=== PATIENT | male | born 1930 | race Caucasian/White ===

== ENCOUNTER 2016-11-17 21:44 | Emergency (ER) | payer MEDICARE, BC ==
[~2016-11-17] VITALS: Ht 167.6 cm; Wt 87.8 kg
[2016-11-17] MEDS ORDERED: SINGULAIR PO (22:35)
[2016-11-17] MEDS ORDERED: POTASSIUM CHLO20 ME3 PO (22:36)
[2016-11-17] MEDS ORDERED: RANEXA1000 M1 PO (22:36)
[2016-11-17] MEDS ORDERED: LEADER OMEPRAZO20 MG PO (22:37)
[2016-11-17] MEDS ORDERED: FLECAINIDE ACE100 MG PO (22:38)
[2016-11-17] MEDS ORDERED: GLUCOPHAGE PO (22:38)
[2016-11-17] MEDS ORDERED: COLACE100 M1 PO (22:39)
[2016-11-17] MEDS ORDERED: LOW DOSE ASPIRI81 M1 PO (22:39)
[2016-11-17] MEDS ORDERED: ACTOS30 MG PO (22:40)
[2016-11-17] MEDS ORDERED: TRICOR145 M1 PO (22:40)
[2016-11-17] MEDS ORDERED: HYDROCHLOROTHIA1 T14 PO (22:40)
[2016-11-17] MEDS ORDERED: LIPITOR 40MG TA40 MG PO (22:41)
[2016-11-17] MEDS ORDERED: LASIX40 M1 PO (22:41)
[2016-11-17] MEDS ORDERED: FERROUS SULFAT325 M4 PO (22:41)
[2016-11-17] MEDS ORDERED: ZYRTEC ALLERGY10 MG PO (22:42)
[2016-11-17] MEDS ORDERED: AZELASTINE137 MCG/Ac NS (22:43)
[2016-11-18 01:30] VITALS: BP 116/63
== END 2016-11-18 01:30 | disposition home or self-care (01) ==
LOC: ED 21:44
DX: I95.1 Orthostatic hypotension (principal); E86.9 Volume depletion, unspecified; N28.9 Disorder of kidney and ureter, unspecified; E11.9 Type 2 diabetes mellitus without complications; I38 Endocarditis, valve unspecified; Z79.84 Long term (current) use of oral hypoglycemic drugs
CPT/HCPCS: J7030

== ENCOUNTER 2016-11-19 19:05 | Observation (INO) | payer MEDICARE, BC ==
[~2016-11-19] VITALS: Ht 167.6 cm; Wt 85.5 kg
[~2016-11-19 19:05] MED LIST changes: -FLECAINIDE ACE150 MG PO; -Patient's Own Medica PO; -RANEXA500 M1 PO
[2016-11-19 19:11] VITALS: BP 114/57
--- NOTE | 2016-11-19 20:45 | NUR ---
PATIENT IS ADMITTED TO OBSERVATION ROOM 202 FROM THE ED AT THIS TIME. FAMILY ACCOMPANIES HIM. PATIENT DOES NOT APPEAR TO BE IN ANY OBVIOUS DISTRESS. PATIENT IS ALERT AND ORIENTED, PLEASANT AND COOPERATIVE. PATIENT IS TRANSPORTED TO ROOM IN WHEELCHAIR, AND TRANSFERS INDEPENDENTLY. HE REQUIRES ONLY SETUP ASSISTANCE. PATIENT'S GAIT IS STEADY. PATIENT'S FAMILY PROVIDES WALKER. DAUGHTER RETURNS HOME TO GET PATIENT'S MEDICATIONS AND CPAP MACHINE. PATIENT INDICATES UNDERSTANDING OF THE RATIONALE BEHIND THE ADMISSION. BED RAILS UP X2. BED ALARM ARMED. HOB ELEVATED TO A 30 DEGREE ANGLE PER PATIENT'S REQUEST. CALL LIGHT PROVIDED WITH INSTRUCTION ON HOW AND WHEN TO USE IT APPROPRIATELY. PATIENT ORIENTED TO ROOM AND HOSPITAL ROUTINES. CLOSE MONITORING AND HOURLY ROUNDING IMPLEMENTED.
[2016-11-19 21:00] VITALS: BP 115/56
[2016-11-19 21:23] VITALS: BP 115/56
[2016-11-19 23:00] VITALS: BP 108/60
[2016-11-20] VITALS (9 sets, daily range): BP systolic 86–109; BP diastolic 48–62
--- NOTE | 2016-11-20 01:14 | NUR ---
PATIENT CONTINUES TO REST QUIETLY IN BED. PATIENT DOES NOT APPEAR TO BE IN ANY OBVIOUS DISTRESS AT THIS TIME. PATIENT CHANGES HIS POSITION IN BED INDEPENDENTLY THROUGHOUT THE NIGHT. HOB ELEVATED TO A 15 DEGREE ANGLE AND PATIENT CHANGES THIS INDEPENDENTLY WELL. PATIENT CONTINUES ON CPAP THERAPY WITH HOME SETTINGS; NO BLEED-IN. PATIENT CONTINUES TO RECEIVE NS AT 100 ML/HR IN A 22G LOCATED IN HIS LEFT HAND. BED RAILS UP X2. BED ALARM ARMED. CALL LIGHT WITHIN REACH. CLOSE MONITORING AND HOURLY ROUNDING CONTINUE.
--- NOTE | 2016-11-20 05:35 | NUR ---
PATIENT CONTINUES TO REST QUIETLY IN BED. PATIENT DOES NOT APPEAR TO BE IN ANY OBVIOUS DISTRESS AT THIS TIME. PATIENT CHANGES HIS POSITION IN BED INDEPENDENTLY THROUGHOUT THE NIGHT. PATIENT HAS HAD NO COMPLAINTS. HE HAS GOTTEN UP SEVERAL TIMES THROUGHOUT THE NIGHT TO AMBULATE TO THE BATHROOM. PATIENT USES HIS WALKER AND HIS GAIT IS STEADY. HE ONLY REQUIRES STANDBY ASSIST. PATIENT CONTINUES ON TELEMETRY. PATIENT CONTINUES ON NS AT 100 ML/HR IN A 22G IV LOCATED IN HIS LEFT HAND. HOB ELEVATED TO A 15 DEGREE ANGLE AND PATIENT CONTROLS THIS INDEPENDENTLY. BED RAILS UP X2. BED ALARM ARMED AT ALL TIMES. CALL LIGHT WITHIN REACH. CLOSE MONITORING AND HOURLY ROUNDING CONTINUE.
--- NOTE | 2016-11-20 06:58 | NUR ---
REPORT GIVEN TO PAN Carreno RN.
[2016-11-21 02:39] VITALS: BP 124/68
[2016-11-21 06:22] VITALS: BP 106/62
[2016-11-21 06:25] VITALS: BP 106/62
--- NOTE | 2016-11-21 07:45 | NUR ---
Daughter here. YUMIKO Caruso also. Daughter talks with staff about in home help for her dad as he moves to [facility] in future. Given info on several private pay agencies in the area. 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 Rajther and pt also interested in HH upon discharge (pt resides w/ daughter at this time) - bathaide and nurse mentioned by daughter. HH choice sheet given to daughter for review. She stated that she will call later this am after talking w/ a coworker to get her recommendations on HH agency.
[2016-11-21] MEDS ORDERED: RANEXA500 M1 PO (09:03)
[2016-11-21] MEDS ORDERED: Patient's Own Medica PO (09:05)
[2016-11-21] MEDS ORDERED: FLECAINIDE ACE150 MG PO (09:06)
--- NOTE | 2016-11-21 09:35 | NUR ---
Tele and IV fluids dc'd as pt to go home today. Pt assisted w/ showering.
[2016-11-21 11:06] VITALS: BP 107/56
--- NOTE | 2016-11-21 12:39 | NUR ---
Pt's dtr chooses [facility] for HH services and pt is agreeable. [facility] notified and accepts pt, also notified of additional info that dtr passes on about her father including that pt was taken out of his former home by his dtr Crys, due to he was living w/ her step mother who evidently has some sort of dementia / Alzeheimer's and would not allow him to sleep, keeping him awake w/ her constant talking and badgering, she also would not let him take his medications correctly. He was trying to take care of her w/o any help from her own children, so daughter went and removed him from the home and has brought him to live w/ her. She reports he was very weak and extremely tired when he first came to her house. She also reports, that he had 2 different doctors who did not communicate w/ one another and his medications were not working together and causing him to get even weaker, which is why she brought him to ED. She has obtained an apartment for him in this town, which they hope to get him in soon, when he is feeling better. She also reports that his was calling him day and night, so she has his cell phone, currently.
--- NOTE | 2016-11-21 13:10 | NUR ---
PATIENT PROVIDED DISCHARGE INSTRUCTIONS AT THIS TIME. PATIENT'S DAUGHTER AND SON IN LAW IN ROOM. VERBALIZED UNDERSTANDING OF INSTRUCTIONS. PATIENT INSTRUCTED ON MEDICATIONS AND CHANGES MADE TO MEDICATIONS. IMPORTANCE OF CHECKING INSTRUCTIONS FOR MEDICATION CHANGES STRESSED. PATIENT INSTRUCTED TO MONITOR BLOOD PRESSURES,WEIGHT AND BLOOD SUGARS AT HOME DAILY. INSTRUCTED PATIENT TO NOTIFY DOCTOR IMMEDIATELY OF EDEMA,SHORTNESS OF BREATH,INCREASE IN WEIGHT, AND LOW OR HIGH BLOOD PRESSURES. VERBALIZED UNDERSTANDING. DENIES ANY QUESTIONS FROM THE NURSE AT THIS TIME.
--- NOTE | 2016-11-21 13:12 | NUR ---
PATIENT LEFT FACILITY VIA WHEELCHAIR TO POV AT THIS TIME. PATIENT ACCOMPANIED BY THIS NURSE, DAUGHTER, AND SON-IN-LAW. PATIENT'S PERSONAL BELONGINGS, HOME MEDICATIONS,AND DISCHARGE INSTRUCTIONS SENT WITH PATIENT'S DAUGHTER.
== END 2016-11-21 13:12 | disposition home health service (06) ==
LOC: ED 19:05 → MED/SURG 20:45
PROVIDERS: ADMIT Nurse Practitioner Family
DX: E86.0 Dehydration (principal); T50.1X5A Adverse effect of loop [high-ceiling] diuretics, initial encounter; I95.1 Orthostatic hypotension; N17.9 Acute kidney failure, unspecified; N18.9 Chronic kidney disease, unspecified; E11.29 Type 2 diabetes mellitus with other diabetic kidney complication; Z95.5 Presence of coronary angioplasty implant and graft; G47.33 Obstructive sleep apnea (adult) (pediatric); Z85.820 Personal history of malignant melanoma of skin; I38 Endocarditis, valve unspecified; Z79.82 Long term (current) use of aspirin; Z79.84 Long term (current) use of oral hypoglycemic drugs; I25.10 Atherosclerotic heart disease of native coronary artery without angina pectoris; I13.0 Hypertensive heart and chronic kidney disease with heart failure and stage 1 through stage 4 chronic kidney disease, or unspecified chronic kidney disease
CPT/HCPCS: G0378; J7030

== ENCOUNTER → 2016-11-19 | Outpatient (CLI) | payer MEDICARE, BC ==
[2016-11-18 01:30] VITALS: BP 116/63
[~2016-11-19] MED LIST: ACTOS30 MG PO; AZELASTINE137 MCG/Ac NS; COLACE100 M1 PO; FERROUS SULFAT325 M4 PO; FLECAINIDE ACE100 MG PO; FLECAINIDE ACE150 MG PO; GLUCOPHAGE PO; HYDROCHLOROTHIA1 T14 PO; LASIX40 M1 PO; LEADER OMEPRAZO20 MG PO; LIPITOR 40MG TA40 MG PO; LOW DOSE ASPIRI81 M1 PO; POTASSIUM CHLO20 ME3 PO; Patient's Own Medica PO; RANEXA1000 M1 PO; RANEXA500 M1 PO; SINGULAIR PO; TRICOR145 M1 PO; ZYRTEC ALLERGY10 MG PO
== END ==
LOC: LAB 07:03
DX: N28.9 Disorder of kidney and ureter, unspecified (principal); E87.5 Hyperkalemia; E86.9 Volume depletion, unspecified

== ENCOUNTER → 2016-11-26 | Outpatient (CLI) | payer MEDICARE, BC ==
[2016-11-21 11:06] VITALS: BP 107/56
[~2016-11-26] MED LIST changes: +FLECAINIDE ACE150 MG PO; +Patient's Own Medica PO; +RANEXA500 M1 PO
== END ==
LOC: LAB 06:53
DX: E11.8 Type 2 diabetes mellitus with unspecified complications (principal); I50.30 Unspecified diastolic (congestive) heart failure; D64.9 Anemia, unspecified; N52.9 Male erectile dysfunction, unspecified; R20.2 Paresthesia of skin; I27.2 Other secondary pulmonary hypertension

== ENCOUNTER → 2016-12-13 | Outpatient (CLI) | payer MEDICARE, BC ==
[2016-11-21 11:06] VITALS: BP 107/56
== END ==
LOC: LAB 12:28
DX: D64.9 Anemia, unspecified (principal); I50.30 Unspecified diastolic (congestive) heart failure

== ENCOUNTER → 2017-01-02 | Outpatient (CLI) | payer MEDICARE, BC | LOC: RAD 13:02 | DX: N62 Hypertrophy of breast (principal); N63 Unspecified lump in breast; N64.4 Mastodynia; N64.89 Other specified disorders of breast ==

== ENCOUNTER → 2017-01-23 | Outpatient (CLI) | payer MEDICARE, BC ==
[2017-01-23 10:39] LABS: HEMATOCRIT 36.6 % (42.0-52.0); HEMOGLOBIN 12.3 g/dL (13.5-18.0); MEAN CELL VOLUME 90 fl (78-100); MEAN CORPUSCULAR HEMOGLOBIN 30 pg (27-31); MEAN CORPUSCULAR HGB CONC 34 g/dL (33-37); MEAN PLATELET VOLUME 9.6 fl (7.4-10.4); PLATELET COUNT 323 K/mm3 (130-400); RED BLOOD COUNT 4.07 M/mm3 (4.20-5.60); RED CELL DISTRIBUTION WIDTH 13.6 % (11.5-14.5); WHITE BLOOD COUNT 7.7 K/mm3 (4.8-10.8)
[2017-01-23 10:40] LABS: ALBUMIN 4.2 g/dL (3.5-5.0); BUN/CREATININE RATIO 25.3 (6.0-26.0); POTASSIUM 5.6 mmol/L (3.6-5.0); TOTAL BILIRUBIN 0.5 mg/dL (0.2-1.3); TOTAL PROTEIN 7.1 g/dL (6.3-8.2)
[2017-01-23 11:07] LABS: LYMPHOCYTE 17 % (20-51); MONOCYTE 14 % (3-10); NEUTROPHILS 65 % (42-75)
[2017-01-23 23:30] LABS: TESTOSTERONE 270 ng/dL (221-716)
== END ==
LOC: LAB 10:02
PROVIDERS: Internal Medicine
DX: E11.9 Type 2 diabetes mellitus without complications (principal); E11.22 Type 2 diabetes mellitus with diabetic chronic kidney disease; N18.3 Chronic kidney disease, stage 3 (moderate)

== ENCOUNTER → 2017-02-06 | Outpatient (CLI) | payer MEDICARE, BC ==
[2017-02-06 07:24] LABS: BUN/CREATININE RATIO 17.6 (6.0-26.0); CALCIUM 9.8 mg/dL (8.4-10.2); POTASSIUM 4.4 mmol/L (3.6-5.0)
== END ==
LOC: LAB 07:03
PROVIDERS: Internal Medicine
DX: E11.22 Type 2 diabetes mellitus with diabetic chronic kidney disease (principal)

== ENCOUNTER → 2017-02-19 | Outpatient (CLI) | payer MEDICARE, BC ==
[2017-02-19 07:31] LABS: ALBUMIN 4.1 g/dL (3.5-5.0); CALCIUM 9.7 mg/dL (8.4-10.2); POTASSIUM 4.8 mmol/L (3.6-5.0); TOTAL BILIRUBIN 0.5 mg/dL (0.2-1.3)
[2017-02-19 07:59] LABS: HEMATOCRIT 38.3 % (42.0-52.0); HEMOGLOBIN 12.6 g/dL (13.5-18.0); MEAN CELL VOLUME 91 fl (78-100); MEAN CORPUSCULAR HEMOGLOBIN 30 pg (27-31); MEAN CORPUSCULAR HGB CONC 33 g/dL (33-37); MEAN PLATELET VOLUME 9.5 fl (7.4-10.4); PLATELET COUNT 387 K/mm3 (130-400); RED BLOOD COUNT 4.23 M/mm3 (4.20-5.60); RED CELL DISTRIBUTION WIDTH 13.5 % (11.5-14.5)
[2017-02-19 08:16] LABS: LYMPHOCYTE 19 % (20-51); MONOCYTE 9 % (3-10); NEUTROPHILS 69 % (42-75)
== END ==
LOC: LAB 07:07
PROVIDERS: Internal Medicine
DX: E11.22 Type 2 diabetes mellitus with diabetic chronic kidney disease (principal); I27.20 Pulmonary hypertension, unspecified; E78.2 Mixed hyperlipidemia

== ENCOUNTER 2017-04-08 20:33 | Emergency (ER) | payer MEDICARE, BC ==
[~2017-04-08] VITALS: Ht 177.8 cm; Wt 87.1 kg
[2017-04-08 21:30] LABS: ALBUMIN 3.7 g/dL (3.5-5.0); BUN/CREATININE RATIO 20.4 (6.0-26.0); CALCIUM 9.2 mg/dL (8.4-10.2); POTASSIUM 4.6 mmol/L (3.6-5.0); TOTAL BILIRUBIN 0.4 mg/dL (0.2-1.3); TOTAL PROTEIN 6.4 g/dL (6.3-8.2)
[2017-04-08 21:32] LABS: HEMATOCRIT 36.5 % (42.0-52.0); MEAN CELL VOLUME 88 fl (78-100); MEAN CORPUSCULAR HEMOGLOBIN 29 pg (27-31); MEAN CORPUSCULAR HGB CONC 33 g/dL (33-37); MEAN PLATELET VOLUME 9.4 fl (7.4-10.4); PLATELET COUNT 310 K/mm3 (130-400); RED BLOOD COUNT 4.13 M/mm3 (4.20-5.60); RED CELL DISTRIBUTION WIDTH 13.3 % (11.5-14.5); WHITE BLOOD COUNT 8.2 K/mm3 (4.8-10.8)
[2017-04-08 21:42] LABS: CKMB ISOENZYME 1.4 ng/mL (0.6-3.5); TROPONIN-I < 0.03 ng/mL (0.00-0.06)
[2017-04-08 21:43] LABS: LYMPHOCYTE 20 % (20-51); MONOCYTE 12 % (3-10); NEUTROPHILS 63 % (42-75)
[2017-04-08 21:53] LABS: D-DIMER 0.48 mg/L FEU (0.15-0.50)
[2017-04-08] MEDS ORDERED: CLOBETASOL PROP15 GM TP (23:09)
[2017-04-08] MEDS ORDERED: COZAAR 50MG50 MG/TAB PO (23:09)
[2017-04-08] MEDS ORDERED: GLUCOPHAGE PO (23:10)
[2017-04-08] MEDS ORDERED: PEG 335017 GM/Dose PO (23:11)
[2017-04-08] MEDS ORDERED: FENOFIBRATE160 MG PO (23:11)
[2017-04-08] MEDS ORDERED: MULTIVITAMIN1 SGL PO (23:11)
[2017-04-08] MEDS ORDERED: LIPITOR 40MG TA40 MG PO (23:11)
[2017-04-09 00:08] VITALS: BP 142/70
== END 2017-04-09 00:08 | disposition home or self-care (01) ==
LOC: ED 20:33
PROVIDERS: Nurse Practitioner Family
DX: F43.9 Reaction to severe stress, unspecified (principal); R07.89 Other chest pain; I10 Essential (primary) hypertension; I25.10 Atherosclerotic heart disease of native coronary artery without angina pectoris; Z95.5 Presence of coronary angioplasty implant and graft; E11.9 Type 2 diabetes mellitus without complications; J44.9 Chronic obstructive pulmonary disease, unspecified; N28.9 Disorder of kidney and ureter, unspecified; G47.33 Obstructive sleep apnea (adult) (pediatric); Z85.820 Personal history of malignant melanoma of skin; Z79.82 Long term (current) use of aspirin; I25.2 Old myocardial infarction
CPT/HCPCS: J2060; J7030

== ENCOUNTER → 2017-04-18 | Outpatient (CLI) | payer MEDICARE, BC ==
[2017-04-09 00:08] VITALS: BP 142/70
[~2017-04-18] MED LIST changes: +CLOBETASOL PROP15 GM TP; +COZAAR 50MG50 MG/TAB PO; +FENOFIBRATE160 MG PO; +MULTIVITAMIN1 SGL PO; +PEG 335017 GM/Dose PO
== END ==
LOC: RAD 17:28
DX: M51.37 Other intervertebral disc degeneration, lumbosacral region (principal); M16.0 Bilateral primary osteoarthritis of hip; Z88.1 Allergy status to other antibiotic agents

== ENCOUNTER 2017-05-07 10:55 | Inpatient (IN) | payer MEDICARE, BC ==
[~2017-05-07] VITALS: Ht 167.6 cm; Wt 83.6 kg
[~2017-05-07 10:55] MED LIST changes: -DULCOLAX STOOL100 MG PO; -MIRALAX17 GM PO; -MUPIROCIN CALCIUM2% TP; -TEMOVATE30 GM TP
[2017-05-07] MEDS ORDERED: COZAAR 50MG50 MG/TAB PO (10:59)
[2017-05-07 11:00] VITALS: BP 93/64
[2017-05-07] MEDS ORDERED: FLECAINIDE ACE150 MG PO (11:00)
[2017-05-07] MEDS ORDERED: MUPIROCIN CALCIUM2% TP (11:02)
[2017-05-07] MEDS ORDERED: GLUCOPHAGE PO (11:02)
[2017-05-07 11:03] VITALS: BP 93/64
[2017-05-07] MEDS ORDERED: LIPITOR 40MG TA40 MG PO (11:03)
[2017-05-07] MEDS ORDERED: TEMOVATE30 GM TP (11:03)
[2017-05-07] MEDS ORDERED: DULCOLAX STOOL100 MG PO (11:04)
[2017-05-07] MEDS ORDERED: FENOFIBRATE160 MG PO (11:05)
[2017-05-07] MEDS ORDERED: MIRALAX17 GM PO (11:06)
[2017-05-07] MEDS ORDERED: FERROUS SULFAT325 M4 PO (11:06)
[2017-05-07 14:41] VITALS: BP 111/72
[2017-05-07 18:44] VITALS: BP 101/61
[2017-05-07 19:14] LABS: URINE APPEARANCE CLEAR; URINE COLOR YELLOW
[2017-05-07 19:15] LABS: URINE BILIRUBIN NEGATIVE (NEGATIVE); URINE BLOOD NEGATIVE (NEGATIVE); URINE GLUCOSE NEGATIVE (NEGATIVE); URINE KETONE NEGATIVE (NEGATIVE); URINE LEUKOCYTE ESTERASE NEGATIVE (NEGATIVE); URINE NITRATE NEGATIVE (NEGATIVE); URINE PROTEIN(semi-quant) TRACE mg/dL (NEGATIVE); URINE UROBILINOGEN NORMAL (NORMAL)
[2017-05-07 23:35] VITALS: BP 95/56
[2017-05-08 03:48] VITALS: BP 106/68
[2017-05-08 06:26] VITALS: BP 104/56
[2017-05-08 07:15] LABS: ALBUMIN 3.5 g/dL (3.5-5.0); BUN/CREATININE RATIO 23.8 (6.0-26.0); CALCIUM 8.8 mg/dL (8.4-10.2); POTASSIUM 4.8 mmol/L (3.6-5.0); TOTAL BILIRUBIN 0.3 mg/dL (0.2-1.3)
[2017-05-08 07:16] LABS: HEMOGLOBIN 10.6 g/dL (13.5-18.0); MEAN CELL VOLUME 89 fl (78-100); MEAN CORPUSCULAR HEMOGLOBIN 29 pg (27-31); MEAN CORPUSCULAR HGB CONC 32 g/dL (33-37); MEAN PLATELET VOLUME 9.6 fl (7.4-10.4); PLATELET COUNT 351 K/mm3 (130-400); WHITE BLOOD COUNT 6.8 K/mm3 (4.8-10.8)
[2017-05-08 07:32] LABS: LYMPHOCYTE 22 % (20-51); MONOCYTE 11 % (3-10); NEUTROPHILS 63 % (42-75); OVALOCYTES 1+; TARGET CELLS 1+
[2017-05-08 10:44] VITALS: BP 105/59
[2017-05-08 15:17] VITALS: BP 132/76
[2017-05-08 18:19] VITALS: BP 125/76
[2017-05-08 23:12] VITALS: BP 102/70
[2017-05-09 03:14] VITALS: BP 126/78
[2017-05-09 06:17] VITALS: BP 105/60
[2017-05-09 11:30] VITALS: BP 116/71
[2017-05-09 15:03] VITALS: BP 123/77
[2017-05-09 18:41] VITALS: BP 93/56
[2017-05-09 23:34] VITALS: BP 98/65
[2017-05-10 02:57] VITALS: BP 115/69
[2017-05-10 06:10] VITALS: BP 114/71
== END 2017-05-10 09:47 | disposition swing bed (61) | DRG 195 ==
LOC: MED/SURG 10:55
PROVIDERS: ADMIT Nurse Practitioner Primary Care
DX: J18.9 Pneumonia, unspecified organism (principal); E11.9 Type 2 diabetes mellitus without complications; I48.91 Unspecified atrial fibrillation; N18.3 Chronic kidney disease, stage 3 (moderate); I50.82 Biventricular heart failure
CPT/HCPCS: J0456; J0696; J1650; J7030; J7050

== ENCOUNTER → 2017-05-07 | Outpatient (CLI) | payer MEDICARE, BC ==
[~2017-05-07] VITALS: Ht 177.8 cm; Wt 87.1 kg
[~2017-05-07] MED LIST changes: +DULCOLAX STOOL100 MG PO; +MIRALAX17 GM PO; +MUPIROCIN CALCIUM2% TP; +TEMOVATE30 GM TP
[2017-05-07 09:45] LABS: EOS # 0.2 (0.04-0.40); EOS % 1.9 % (0.0-4.0); HEMATOCRIT 40.2 % (42.0-52.0); HEMOGLOBIN 13.4 g/dL (13.5-18.0); LYMPH# 1.5 (1.50-4.00); MEAN CELL VOLUME 88 fl (78-100); MEAN CORPUSCULAR HEMOGLOBIN 29 pg (27-31); MEAN CORPUSCULAR HGB CONC 33 g/dL (33-37); MEAN PLATELET VOLUME 9.1 fl (7.4-10.4); NEU # 5.8 (1.40-6.50); PLATELET COUNT 391 K/mm3 (130-400); RED BLOOD COUNT 4.58 M/mm3 (4.20-5.60); RED CELL DISTRIBUTION WIDTH 13.6 % (11.5-14.5); WHITE BLOOD COUNT 8.5 K/mm3 (4.8-10.8)
[2017-05-07 09:58] LABS: ALBUMIN 4.3 g/dL (3.5-5.0); CALCIUM 9.9 mg/dL (8.4-10.2); POTASSIUM 5.2 mmol/L (3.6-5.0); TOTAL BILIRUBIN 0.4 mg/dL (0.2-1.3); TOTAL PROTEIN 7.2 g/dL (6.3-8.2)
[2017-05-07 11:15] VITALS: BP 102/66
== END ==
LOC: AMSURD 09:31
PROVIDERS: Nurse Practitioner Primary Care
DX: R00.0 Tachycardia, unspecified (principal); R91.8 Other nonspecific abnormal finding of lung field

== ENCOUNTER 2017-05-10 09:47 | Inpatient (IN) | payer MEDICARE, BC ==
[~2017-05-10] VITALS: Ht 167.6 cm; Wt 76.2 kg
[~2017-05-10 09:47] MED LIST changes: +DULCOLAX STOOL100 MG PO; +MIRALAX17 GM PO; +MUPIROCIN CALCIUM2% TP; +TEMOVATE30 GM TP
[2017-05-10 11:27] VITALS: BP 93/64
[2017-05-10 19:14] VITALS: BP 100/66
[2017-05-11 06:48] VITALS: BP 98/64
[2017-05-11 09:10] VITALS: BP 110/73
[2017-05-11 18:34] VITALS: BP 119/67
[2017-05-12 06:32] VITALS: BP 112/72
[2017-05-12 18:14] VITALS: BP 106/67
[2017-05-13 06:31] VITALS: BP 122/67
[2017-05-13 19:06] VITALS: BP 108/72
[2017-05-14 06:23] VITALS: BP 114/60
[2017-05-14 18:20] VITALS: BP 116/52
[2017-05-15 06:36] VITALS: BP 122/67
[2017-05-15 18:26] VITALS: BP 113/59
[2017-05-16 06:29] VITALS: BP 131/70
[2017-05-16] MEDS ORDERED: CEFDINIR300 MG PO (07:49)
[2017-05-16] MEDS ORDERED: ZITHROMAX500 M2 PO (07:50)
[2017-05-16] MEDS ORDERED: IPRATROPIUM BROM3 M1 IH (07:52)
[2017-05-16] MEDS ORDERED: MUCUS ER1200 MG PO (07:54)
[2017-05-16] MEDS ORDERED: FLUTICASON0.05 MG/Ac NS (07:55)
[2017-05-16] MEDS ORDERED: METOPROLOL SUCC25 M1 PO (07:57)
== END 2017-05-16 15:48 | disposition home health service (06) | DRG 195 ==
LOC: MED/SURG 09:47
PROVIDERS: ADMIT Internal Medicine
DX: J18.9 Pneumonia, unspecified organism (principal); E11.9 Type 2 diabetes mellitus without complications; N18.3 Chronic kidney disease, stage 3 (moderate); I50.82 Biventricular heart failure; D64.9 Anemia, unspecified; I48.91 Unspecified atrial fibrillation; J98.4 Other disorders of lung; R00.0 Tachycardia, unspecified
CPT/HCPCS: J0696; J1650

== ENCOUNTER → 2017-06-06 | Outpatient (CLI) | payer MEDICARE, BC ==
[2017-05-16 06:29] VITALS: BP 131/70
[~2017-06-06] MED LIST changes: +CEFDINIR300 MG PO; +FLUTICASON0.05 MG/Ac NS; +IPRATROPIUM BROM3 M1 IH; +METOPROLOL SUCC25 M1 PO; +MUCUS ER1200 MG PO; +ZITHROMAX500 M2 PO
[2017-06-06 07:23] LABS: HEMATOCRIT 34.7 % (42.0-52.0); HEMOGLOBIN 11.8 g/dL (13.5-18.0); MEAN CELL VOLUME 87 fl (78-100); MEAN CORPUSCULAR HEMOGLOBIN 30 pg (27-31); MEAN CORPUSCULAR HGB CONC 34 g/dL (33-37); PLATELET COUNT 414 K/mm3 (130-400); RED BLOOD COUNT 3.98 M/mm3 (4.20-5.60); RED CELL DISTRIBUTION WIDTH 13.3 % (11.5-14.5); WHITE BLOOD COUNT 7.7 K/mm3 (4.8-10.8)
[2017-06-06 07:39] LABS: ALBUMIN 4.2 g/dL (3.5-5.0); BUN/CREATININE RATIO 20.2 (6.0-26.0); CALCIUM 9.8 mg/dL (8.4-10.2); POTASSIUM 4.7 mmol/L (3.6-5.0); TOTAL BILIRUBIN 0.4 mg/dL (0.2-1.3); TOTAL PROTEIN 7.2 g/dL (6.3-8.2)
[2017-06-06 08:29] LABS: LYMPHOCYTE 23 % (20-51); MONOCYTE 10 % (3-10); NEUTROPHILS 66 % (42-75)
== END ==
LOC: LAB 07:08
PROVIDERS: Internal Medicine
DX: E11.22 Type 2 diabetes mellitus with diabetic chronic kidney disease (principal); E11.9 Type 2 diabetes mellitus without complications; I50.33 Acute on chronic diastolic (congestive) heart failure; Z88.1 Allergy status to other antibiotic agents

== ENCOUNTER → 2017-06-13 | Outpatient (CLI) | payer MEDICARE, BC ==
[2017-05-16 06:29] VITALS: BP 131/70
[2017-06-13 09:30] LABS: HEMATOCRIT 34.3 % (42.0-52.0); HEMOGLOBIN 11.5 g/dL (13.5-18.0); MEAN CELL VOLUME 88 fl (78-100); MEAN CORPUSCULAR HEMOGLOBIN 29 pg (27-31); MEAN CORPUSCULAR HGB CONC 34 g/dL (33-37); PLATELET COUNT 441 K/mm3 (130-400); RED BLOOD COUNT 3.91 M/mm3 (4.20-5.60); RED CELL DISTRIBUTION WIDTH 13.4 % (11.5-14.5); WHITE BLOOD COUNT 8.1 K/mm3 (4.8-10.8)
[2017-06-13 09:37] LABS: ALBUMIN 4.2 g/dL (3.5-5.0); BUN/CREATININE RATIO 18.5 (6.0-26.0); CALCIUM 9.3 mg/dL (8.4-10.2); POTASSIUM 4.5 mmol/L (3.6-5.0); TOTAL BILIRUBIN 0.4 mg/dL (0.2-1.3); TOTAL PROTEIN 7.2 g/dL (6.3-8.2)
[2017-06-13 09:40] LABS: BAND 1 % (0-10); LYMPHOCYTE 18 % (20-51); MONOCYTE 15 % (3-10); NEUTROPHILS 65 % (42-75)
[2017-06-13 09:49] LABS: URINE APPEARANCE CLEAR; URINE COLOR YELLOW; URINE PROTEIN(semi-quant) NEGATIVE (NEGATIVE)
[2017-06-13 09:50] LABS: URINE BILIRUBIN NEGATIVE (NEGATIVE); URINE BLOOD NEGATIVE (NEGATIVE); URINE GLUCOSE NEGATIVE (NEGATIVE); URINE KETONE NEGATIVE (NEGATIVE); URINE LEUKOCYTE ESTERASE NEGATIVE (NEGATIVE); URINE MUCUS PRESENT (NOT PRESENT); URINE NITRATE NEGATIVE (NEGATIVE); URINE UROBILINOGEN NORMAL (NORMAL); URINE WBC 0-1 /hpf (0-3)
== END ==
LOC: LAB 09:09
PROVIDERS: Nurse Practitioner Family
DX: R22.0 Localized swelling, mass and lump, head (principal); I50.9 Heart failure, unspecified; R63.5 Abnormal weight gain; Z88.1 Allergy status to other antibiotic agents

== ENCOUNTER → 2017-06-17 | Outpatient (CLI) | payer MEDICARE, BC ==
[2017-06-17 16:12] LABS: BUN/CREATININE RATIO 21.9 (6.0-26.0); CALCIUM 9.6 mg/dL (8.4-10.2); POTASSIUM 4.3 mmol/L (3.6-5.0)
== END ==
LOC: LAB 15:20
PROVIDERS: Internal Medicine
DX: I50.9 Heart failure, unspecified (principal); R63.5 Abnormal weight gain; Z88.1 Allergy status to other antibiotic agents

== ENCOUNTER → 2017-07-30 | Outpatient (CLI) | payer MEDICARE, BC ==
[2017-07-30 16:38] LABS: HEMATOCRIT 34.6 % (42.0-52.0); HEMOGLOBIN 11.5 g/dL (13.5-18.0); MEAN CELL VOLUME 88 fl (78-100); MEAN CORPUSCULAR HEMOGLOBIN 29 pg (27-31); MEAN CORPUSCULAR HGB CONC 33 g/dL (33-37); MEAN PLATELET VOLUME 9.3 fl (7.4-10.4); PLATELET COUNT 403 K/mm3 (130-400); RED BLOOD COUNT 3.94 M/mm3 (4.20-5.60); RED CELL DISTRIBUTION WIDTH 13.9 % (11.5-14.5); WHITE BLOOD COUNT 7.8 K/mm3 (4.8-10.8)
[2017-07-30 16:46] LABS: ALBUMIN 4.2 g/dL (3.5-5.0); BUN/CREATININE RATIO 25.2 (6.0-26.0); CALCIUM 9.4 mg/dL (8.4-10.2); POTASSIUM 4.5 mmol/L (3.6-5.0); TOTAL BILIRUBIN 0.3 mg/dL (0.2-1.3); TOTAL PROTEIN 7.1 g/dL (6.3-8.2)
[2017-07-30 16:55] LABS: LYMPHOCYTE 24 % (20-51); MONOCYTE 10 % (3-10); NEUTROPHILS 63 % (42-75)
== END ==
LOC: LAB 15:52
PROVIDERS: Internal Medicine
DX: E11.9 Type 2 diabetes mellitus without complications (principal); I50.33 Acute on chronic diastolic (congestive) heart failure; E11.22 Type 2 diabetes mellitus with diabetic chronic kidney disease; Z88.1 Allergy status to other antibiotic agents

== ENCOUNTER → 2017-08-14 | Outpatient (CLI) | payer MEDICARE, BC ==
[2017-08-14 07:15] LABS: HEMATOCRIT 34.4 % (42.0-52.0); HEMOGLOBIN 11.3 g/dL (13.5-18.0); MEAN CELL VOLUME 88 fl (78-100); MEAN CORPUSCULAR HEMOGLOBIN 29 pg (27-31); MEAN CORPUSCULAR HGB CONC 33 g/dL (33-37); MEAN PLATELET VOLUME 8.8 fl (7.4-10.4); PLATELET COUNT 378 K/mm3 (130-400); RED BLOOD COUNT 3.89 M/mm3 (4.20-5.60); RED CELL DISTRIBUTION WIDTH 13.9 % (11.5-14.5); WHITE BLOOD COUNT 7.1 K/mm3 (4.8-10.8)
[2017-08-14 07:28] LABS: ALBUMIN 4.5 g/dL (3.5-5.0); BUN/CREATININE RATIO 18.7 (6.0-26.0); CALCIUM 9.6 mg/dL (8.4-10.2); POTASSIUM 4.6 mmol/L (3.6-5.0); TOTAL BILIRUBIN 0.4 mg/dL (0.2-1.3); TOTAL PROTEIN 7.5 g/dL (6.3-8.2)
[2017-08-14 07:38] LABS: LYMPHOCYTE 18 % (20-51); MONOCYTE 10 % (3-10); NEUTROPHILS 68 % (42-75)
== END ==
LOC: LAB 07:05
PROVIDERS: Internal Medicine
DX: E11.22 Type 2 diabetes mellitus with diabetic chronic kidney disease (principal); N18.9 Chronic kidney disease, unspecified; I50.33 Acute on chronic diastolic (congestive) heart failure

== ENCOUNTER → 2017-09-29 | Outpatient (CLI) | payer MEDICARE, BC ==
[2017-09-29 08:38] LABS: HEMATOCRIT 34.7 % (42.0-52.0); HEMOGLOBIN 11.4 g/dL (13.5-18.0); MEAN CELL VOLUME 88 fl (78-100); MEAN CORPUSCULAR HEMOGLOBIN 29 pg (27-31); MEAN CORPUSCULAR HGB CONC 33 g/dL (33-37); MEAN PLATELET VOLUME 9.5 fl (7.4-10.4); PLATELET COUNT 371 K/mm3 (130-400); RED BLOOD COUNT 3.93 M/mm3 (4.20-5.60); WHITE BLOOD COUNT 6.9 K/mm3 (4.8-10.8)
[2017-09-29 09:08] LABS: ALBUMIN 4.2 g/dL (3.5-5.0); BUN/CREATININE RATIO 20.4 (6.0-26.0); CALCIUM 9.6 mg/dL (8.4-10.2); POTASSIUM 4.7 mmol/L (3.6-5.0); TOTAL BILIRUBIN 0.4 mg/dL (0.2-1.3); TOTAL PROTEIN 7.1 g/dL (6.3-8.2)
[2017-09-29 09:40] LABS: LYMPHOCYTE 24 % (20-51); MONOCYTE 11 % (3-10); NEUTROPHILS 64 % (42-75)
== END ==
LOC: LAB 08:04
PROVIDERS: Internal Medicine
DX: E11.22 Type 2 diabetes mellitus with diabetic chronic kidney disease (principal); N18.3 Chronic kidney disease, stage 3 (moderate); I50.33 Acute on chronic diastolic (congestive) heart failure

== ENCOUNTER → 2017-12-29 | Outpatient (CLI) | payer MEDICARE, BC ==
[2017-12-29 18:12] LABS: CALCIUM 8.9 mg/dL (8.4-10.2); POTASSIUM 5.1 mmol/L (3.6-5.0)
== END ==
LOC: LAB 17:12
PROVIDERS: Internal Medicine
DX: E87.5 Hyperkalemia (principal)

== ENCOUNTER → 2018-02-18 | Outpatient (CLI) | payer MEDICARE, BC ==
[2018-02-18 17:32] LABS: CALCIUM 9.9 mg/dL (8.4-10.2); POTASSIUM 4.6 mmol/L (3.6-5.0)
== END ==
LOC: LAB 16:52
PROVIDERS: Internal Medicine
DX: E87.5 Hyperkalemia (principal)

== ENCOUNTER → 2018-04-13 | Outpatient (CLI) | payer MEDICARE, BC ==
[2018-04-13 16:30] LABS: HEMATOCRIT 34.9 % (42.0-52.0); HEMOGLOBIN 11.8 g/dL (13.5-18.0); MEAN CELL VOLUME 86 fl (78-100); MEAN CORPUSCULAR HEMOGLOBIN 29 pg (27-31); MEAN CORPUSCULAR HGB CONC 34 g/dL (33-37); MEAN PLATELET VOLUME 9.2 fl (7.4-10.4); PLATELET COUNT 430 K/mm3 (130-400); RED BLOOD COUNT 4.04 M/mm3 (4.20-5.60); RED CELL DISTRIBUTION WIDTH 13.9 % (11.5-14.5); WHITE BLOOD COUNT 8.5 K/mm3 (4.8-10.8)
[2018-04-13 17:54] LABS: ALBUMIN 4.6 g/dL (3.5-5.0); POTASSIUM 4.9 mmol/L (3.6-5.0); TOTAL BILIRUBIN 0.4 mg/dL (0.2-1.3); TOTAL PROTEIN 7.1 g/dL (6.3-8.2)
[2018-04-14 01:39] LABS: LYMPHOCYTE 18 % (20-51); MONOCYTE 11 % (3-10); NEUTROPHILS 67 % (42-75)
== END ==
LOC: LAB 16:06
PROVIDERS: Internal Medicine
DX: I13.0 Hypertensive heart and chronic kidney disease with heart failure and stage 1 through stage 4 chronic kidney disease, or unspecified chronic kidney disease (principal); E11.22 Type 2 diabetes mellitus with diabetic chronic kidney disease; N18.3 Chronic kidney disease, stage 3 (moderate); I50.30 Unspecified diastolic (congestive) heart failure

== ENCOUNTER → 2018-07-22 | Outpatient (CLI) | payer MEDICARE, BC ==
[2018-07-22 15:22] LABS: HEMATOCRIT 35.7 % (42.0-52.0); HEMOGLOBIN 11.8 g/dL (13.5-18.0); MEAN CELL VOLUME 85 fl (78-100); MEAN CORPUSCULAR HEMOGLOBIN 28 pg (27-31); MEAN CORPUSCULAR HGB CONC 33 g/dL (33-37); MEAN PLATELET VOLUME 8.6 fl (7.4-10.4); PLATELET COUNT 434 K/mm3 (130-400); RED BLOOD COUNT 4.18 M/mm3 (4.20-5.60); RED CELL DISTRIBUTION WIDTH 13.7 % (11.5-14.5); WHITE BLOOD COUNT 8.3 K/mm3 (4.8-10.8)
[2018-07-22 15:49] LABS: ALBUMIN 4.8 g/dL (3.5-5.0); CALCIUM 9.6 mg/dL (8.4-10.2); POTASSIUM 4.3 mmol/L (3.6-5.0); TOTAL BILIRUBIN 0.4 mg/dL (0.2-1.3); TOTAL PROTEIN 7.6 g/dL (6.3-8.2)
[2018-07-22 15:58] LABS: LYMPHOCYTE 22 % (20-51); MONOCYTE 15 % (3-10); NEUTROPHILS 60 % (42-75)
== END ==
LOC: LAB 15:07
PROVIDERS: Internal Medicine
DX: E11.22 Type 2 diabetes mellitus with diabetic chronic kidney disease (principal); N18.3 Chronic kidney disease, stage 3 (moderate); I50.30 Unspecified diastolic (congestive) heart failure

== ENCOUNTER → 2018-10-13 | Outpatient (CLI) | payer MEDICARE, BC ==
[2018-10-13 08:45] LABS: HEMATOCRIT 34.3 % (42.0-52.0); HEMOGLOBIN 11.5 g/dL (13.5-18.0); MEAN CELL VOLUME 86 fl (78-100); MEAN CORPUSCULAR HEMOGLOBIN 29 pg (27-31); MEAN CORPUSCULAR HGB CONC 34 g/dL (33-37); MEAN PLATELET VOLUME 9.1 fl (7.4-10.4); PLATELET COUNT 398 K/mm3 (130-400); RED BLOOD COUNT 3.98 M/mm3 (4.20-5.60); RED CELL DISTRIBUTION WIDTH 13.7 % (11.5-14.5); WHITE BLOOD COUNT 8.4 K/mm3 (4.8-10.8)
[2018-10-13 08:52] LABS: ALBUMIN 4.3 g/dL (3.4-4.8); POTASSIUM 4.4 mmol/L (3.5-5.1)
[2018-10-13 08:53] LABS: CALCIUM 9.8 mg/dL (8.3-10.5)
[2018-10-13 08:57] LABS: TOTAL BILIRUBIN 0.4 mg/dL (0.2-1.2)
[2018-10-13 09:08] LABS: LYMPHOCYTE 9 % (20-51); MONOCYTE 14 % (3-10); NEUTROPHILS 76 % (42-75)
== END ==
LOC: LAB 08:21
PROVIDERS: Internal Medicine
DX: E11.22 Type 2 diabetes mellitus with diabetic chronic kidney disease (principal); I50.30 Unspecified diastolic (congestive) heart failure

== ENCOUNTER 2019-01-01 20:22 | Emergency (ER) | payer MEDICARE, BC ==
[2019-01-01] MEDS ORDERED: FUROSEMIDE20 MG PO (20:46)
[2019-01-01] MEDS ORDERED: MINOXIDIL2.5 MG/TAB PO (20:48)
[2019-01-01] MEDS ORDERED: LOSARTAN POTAS100 MG PO (20:48)
[2019-01-01] MEDS ORDERED: PERCOCET 325 MG1 TA2 PO (21:14)
[2019-01-01 21:36] VITALS: BP 129/56
== END 2019-01-01 21:36 | disposition home or self-care (01) ==
LOC: ED 20:22
DX: M54.16 Radiculopathy, lumbar region (principal); I25.10 Atherosclerotic heart disease of native coronary artery without angina pectoris; Z90.49 Acquired absence of other specified parts of digestive tract; Z90.89 Acquired absence of other organs; Z95.5 Presence of coronary angioplasty implant and graft; Z98.890 Other specified postprocedural states
CPT/HCPCS: J1100; J1885

== ENCOUNTER → 2019-01-22 | Outpatient (CLI) | payer MEDICARE, BC ==
[2019-01-01 21:36] VITALS: BP 129/56
[~2019-01-22] MED LIST changes: +FUROSEMIDE20 MG PO; +LOSARTAN POTAS100 MG PO; +MINOXIDIL2.5 MG/TAB PO; +PERCOCET 325 MG1 TA2 PO
[2019-01-22 08:40] LABS: HEMATOCRIT 32.9 % (42.0-52.0); MEAN CELL VOLUME 87 fl (78-100); MEAN CORPUSCULAR HEMOGLOBIN 29 pg (27-31); MEAN CORPUSCULAR HGB CONC 33 g/dL (33-37); MEAN PLATELET VOLUME 9.2 fl (7.4-10.4); PLATELET COUNT 416 K/mm3 (130-400); RED BLOOD COUNT 3.77 M/mm3 (4.20-5.60); RED CELL DISTRIBUTION WIDTH 13.9 % (11.5-14.5); WHITE BLOOD COUNT 7.1 K/mm3 (4.8-10.8)
[2019-01-22 09:00] LABS: ALBUMIN 4.2 g/dL (3.4-4.8); POTASSIUM 4.5 mmol/L (3.5-5.1)
[2019-01-22 09:01] LABS: CALCIUM 9.6 mg/dL (8.3-10.5)
[2019-01-22 09:04] LABS: TOTAL BILIRUBIN 0.4 mg/dL (0.2-1.2)
[2019-01-22 09:08] LABS: MAGNESIUM 1.67 mg/dL (1.60-2.60)
[2019-01-22 09:50] LABS: LYMPHOCYTE 21 % (20-51); MONOCYTE 9 % (3-10); NEUTROPHILS 69 % (42-75)
== END ==
LOC: LAB 08:05
PROVIDERS: Internal Medicine
DX: E11.22 Type 2 diabetes mellitus with diabetic chronic kidney disease (principal); I50.33 Acute on chronic diastolic (congestive) heart failure

== ENCOUNTER → 2019-04-20 | Outpatient (CLI) | payer MEDICARE, BC ==
[2019-04-20 17:18] LABS: HEMATOCRIT 32.4 % (42.0-52.0); HEMOGLOBIN 10.8 g/dL (13.5-18.0); MEAN CELL VOLUME 87 fl (78-100); MEAN CORPUSCULAR HEMOGLOBIN 29 pg (27-31); MEAN CORPUSCULAR HGB CONC 33 g/dL (33-37); MEAN PLATELET VOLUME 8.9 fl (7.4-10.4); PLATELET COUNT 422 K/mm3 (130-400); RED BLOOD COUNT 3.72 M/mm3 (4.20-5.60); WHITE BLOOD COUNT 6.6 K/mm3 (4.8-10.8)
[2019-04-20 17:33] LABS: ALBUMIN 4.2 g/dL (3.4-4.8); POTASSIUM 4.4 mmol/L (3.5-5.1)
[2019-04-20 17:34] LABS: CALCIUM 9.2 mg/dL (8.3-10.5); LYMPHOCYTE 25 % (20-51); MONOCYTE 10 % (3-10); NEUTROPHILS 64 % (42-75)
[2019-04-20 17:35] LABS: TOTAL PROTEIN 6.9 g/dL (6.2-8.1)
[2019-04-20 17:37] LABS: TOTAL BILIRUBIN 0.3 mg/dL (0.2-1.2)
[2019-04-20 17:51] LABS: URINE APPEARANCE CLEAR; URINE BILIRUBIN NEGATIVE (NEGATIVE); URINE BLOOD NEGATIVE (NEGATIVE); URINE COLOR YELLOW; URINE GLUCOSE NEGATIVE (NEGATIVE); URINE KETONE NEGATIVE (NEGATIVE); URINE LEUKOCYTE ESTERASE NEGATIVE (NEGATIVE); URINE NITRATE NEGATIVE (NEGATIVE); URINE PROTEIN(semi-quant) TRACE mg/dL (NEGATIVE); URINE UROBILINOGEN NORMAL (NORMAL)
[2019-04-20 17:52] LABS: URINE MUCUS PRESENT (NOT PRESENT)
[2019-04-20 18:14] LABS: ERYTHROCYTE SEDIMENTATION RATE 5 mm/hr (0-20)
[2019-04-21 17:59] LABS: TESTOSTERONE 216 ng/dL (221-716)
== END ==
LOC: LAB 16:46
PROVIDERS: Internal Medicine
DX: Z12.5 Encounter for screening for malignant neoplasm of prostate (principal); Z12.11 Encounter for screening for malignant neoplasm of colon; I12.9 Hypertensive chronic kidney disease with stage 1 through stage 4 chronic kidney disease, or unspecified chronic kidney disease; E11.22 Type 2 diabetes mellitus with diabetic chronic kidney disease; E11.40 Type 2 diabetes mellitus with diabetic neuropathy, unspecified; N52.9 Male erectile dysfunction, unspecified

== ENCOUNTER → 2019-05-03 | Outpatient (CLI) | payer MEDICARE, BC ==
[2019-05-04 16:26] LABS: FOLLICLE STIMULATING HORMONE 33.7 mIU/mL (1.0-12.0); LUTENIZING HORMONE 16.6 mIU/mL (0.6-12.1); PROLACTIN AMS 13.5 ng/mL (3.5-19.4)
== END ==
LOC: LAB 15:59
PROVIDERS: Internal Medicine
DX: D64.9 Anemia, unspecified (principal); R86.1 Abnormal level of hormones in specimens from male genital organs; K90.9 Intestinal malabsorption, unspecified

== ENCOUNTER → 2019-05-18 | Outpatient (CLI) | payer MEDICARE, BC ==
[2019-05-18 08:11] LABS: HEMATOCRIT 35.6 % (42.0-52.0); HEMOGLOBIN 11.8 g/dL (13.5-18.0); MEAN CELL VOLUME 87 fl (78-100); MEAN CORPUSCULAR HEMOGLOBIN 29 pg (27-31); MEAN CORPUSCULAR HGB CONC 33 g/dL (33-37); MEAN PLATELET VOLUME 8.6 fl (7.4-10.4); PLATELET COUNT 450 K/mm3 (130-400); RED BLOOD COUNT 4.08 M/mm3 (4.20-5.60); RED CELL DISTRIBUTION WIDTH 13.5 % (11.5-14.5); WHITE BLOOD COUNT 6.9 K/mm3 (4.8-10.8)
[2019-05-18 08:28] LABS: ALBUMIN 4.3 g/dL (3.4-4.8)
[2019-05-18 08:29] LABS: POTASSIUM 4.4 mmol/L (3.5-5.1)
[2019-05-18 08:30] LABS: CALCIUM 9.2 mg/dL (8.3-10.5)
[2019-05-18 08:31] LABS: TOTAL PROTEIN 7.2 g/dL (6.2-8.1)
[2019-05-18 08:33] LABS: TOTAL BILIRUBIN 0.5 mg/dL (0.2-1.2)
[2019-05-18 08:38] LABS: LYMPHOCYTE 14 % (20-51); MONOCYTE 10 % (3-10); NEUTROPHILS 73 % (42-75)
== END ==
LOC: RAD 08:00
PROVIDERS: Internal Medicine
DX: I27.21 Secondary pulmonary arterial hypertension (principal)

== ENCOUNTER → 2019-05-31 | Outpatient (CLI) | payer MEDICARE, BC ==
[2019-05-31 17:26] LABS: POTASSIUM 4.5 mmol/L (3.5-5.1)
[2019-05-31 17:27] LABS: CALCIUM 9.5 mg/dL (8.3-10.5)
[2019-05-31 17:34] LABS: MAGNESIUM 1.58 mg/dL (1.60-2.60)
== END ==
LOC: LAB 16:59
PROVIDERS: Internal Medicine
DX: R06.02 Shortness of breath (principal)

== ENCOUNTER → 2019-06-24 | Outpatient (CLI) | payer MEDICARE, BC ==
[2019-06-24 15:50] LABS: POTASSIUM 4.3 mmol/L (3.5-5.1)
[2019-06-24 15:51] LABS: CALCIUM 10.1 mg/dL (8.3-10.5)
[2019-06-24 15:58] LABS: MAGNESIUM 1.69 mg/dL (1.60-2.60)
== END ==
LOC: LAB 15:21
PROVIDERS: Internal Medicine
DX: R06.02 Shortness of breath (principal)

== ENCOUNTER → 2019-07-23 | Outpatient (CLI) | payer MEDICARE, BC ==
[2019-07-23 15:13] LABS: POTASSIUM 4.8 mmol/L (3.5-5.1)
[2019-07-23 15:14] LABS: CALCIUM 9.3 mg/dL (8.3-10.5)
[2019-07-23 15:21] LABS: MAGNESIUM 1.62 mg/dL (1.60-2.60)
== END ==
LOC: LAB 14:34
PROVIDERS: Internal Medicine
DX: R06.02 Shortness of breath (principal)